=== PATIENT | male | born 1970 | race Caucasian/White ===

== ENCOUNTER 2025-03-08 10:19 | Outpatient (AMB) | payer OTHER, SELFPAY ==
--- NOTE | 2025-03-08 10:20 | MHC.OFFVIS ---
Vital Signs 03/08/25 10:31 Height 5 ft 9 in Weight 182 lb BMI 26.9 BP 128/86 Blood Pressure Location Rt brachial Position Sitting Pulse 98 Pulse Source Pulse Oximeter Pulse Oximetry (%) 100 Oxygen Delivery Method Room Air Intake Visit Reasons: bloating, intermittant abd discomfort Intake Note: New pt for initial eval of chronic abd pain, hx of diverticulitis. Last colo 2021. Original recall for 2031. PCP now requests sooner. CC; C/O intermittent episodes of GERD (nocturnal) persistence despite current therapy, RLQ pain + bloating, constipation, and occasional rectal bleeding w/ hx of hemorrhoids. 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 Patient had colonoscopy in 2019. No polyps found, recommendation was made for patient to return in 10 years. Patient reports that about October of this years she he had severe constipation rectal bleeding after straining. Patient reports that he stopped taking his anti anxiety medication and his symptoms resolved. Patient reports that he also started taking probiotics and fiber daily. Patient reports that he is moving his bowels daily. Trying to change his diet. Eats 2-3 meals a day. His last meal has to be before 4 pm or he does not follow sleep till after midnight. Patient reports occasional abdominal bloating. Head CT scan done in October that showed moderate diverticulosis to descending and sigmoid colon without diverticulitis. Patient denies melena, hematochezia, unintentional weight loss or ribbon like stools. No family history of CRC. Patient denies any epigastric pain or discomfort. He is currently taking pantoprazole and reports to have no issues. Patient denies any dyspepsia, dysphagia or odynophagia. Denies any abdominal pain or discomfort. No family history of inflammatory bowel disease. [facility] Medical History (Updated 03/08/25 @ 11:[address] [facility]) Esophageal polyp Acute diverticulitis Allergic rhinitis HLD (hyperlipidemia) Anxiety GERD (gastroesophageal reflux disease) Depression Surgical History History of throat surgery H/O colonoscopy Family History (Updated 03/08/25 @ 10:32 by FELISHA Botello) Father Coronary artery disease Unknown Colon cancer Social History Alcohol intake: current Comment: Socially Patient Tobacco Use Status: Tobacco use Unknown Review of Systems Const Denies weight gain and Denies weight loss ENT Reports no additional complaints, Denies dysphagia and Denies odynophagia Card Reports no additional complaints Resp Reports no additional complaints GI Reports abdominal pain (RLQ), Denies belching, Denies melena, Reports bloating, Denies change in bowel habits, Reports constipation, Denies dysphagia, Denies excessive flatus, Denies dyspepsia, Reports heartburn, Denies diarrhea, Denies loose stools, Denies nausea, Denies odynophagia and Denies vomiting Reports no additional complaints Musc Reports no additional complaints Neuro Reports no additional complaints Psych Reports no additional complaints Endo Reports no additional complaints Physical Exam Vital Signs: BMI result Body Mass Index 26.9 Const General: healthy appearing, no acute distress and well developed Nutritional Appearance: well nourished Orientation/consciousness: patient oriented x3 Resp Effort & Inspection: normal respiratory effort, able to speak in complete sentences, no tracheal deviation and symmetric chest movement Auscultation: clear to auscultation bilaterally Cardio Rate: regular rate GI Inspection: Yes normal to inspection and No distended Palpation (GI): Soft to palpation, not firm, nontender and No hepatosplenomegaly present Auscultation: normal bowel sounds General: Yes no CVA tenderness Back/Spine/Pelvis Back: no CVA tenderness Skin General skin exam: elasticity normal, turgor normal and dry skin Neuro General: patient oriented x3 Psych Appearance: grossly normal Mental Status: mental status grossly normal Assessment & Plan Assessment & Plan (1) GERD (gastroesophageal reflux disease): Code(s): K21.9 - Gastro-esophageal reflux disease without esophagitis Category: Medical Qualifiers: Esophagitis presence: esophagitis presence not specified Qualified Code(s): K21.9 - Gastro-esophageal reflux disease without esophagitis (2) Esophageal polyp: Code(s): K22.81 - Esophageal polyp Category: Medical (3) Acute diverticulitis: Comment: 12/06/2020 - Treated at [facility] Code(s): K57.92 - Diverticulitis of intestine, part unspecified, without perforation or abscess without bleeding Category: Medical (4) Postprandial abdominal bloating: Code(s): R14.0 - Abdominal distension (gaseous) Plan Patient will continue current therapy with fiber and pre and probiotics. Discussed with patient low FODMAP diet. List of food recommended as well as list of food to avoid given to patient. Patient denies having any GI concerning symptoms at this point except for occasional abdominal bloating which is most likely food related. However will check vitamin B12, folate, transglutaminase thyroid study, lipase and vitamin-D. Patient reports the pantoprazole have been working for him. Patient reports that he had esophageal polyp removed in October of this year. He he probably should have upper endoscopy done next year to re-evaluate esophagus. Patient will return to our office in 4 months. He was encouraged to call us if he will have any GI concerning symptoms. Patient is agreeable to this plan and verbalizes understanding of instructions. He was given the opportunity to ask questions and all questions answered. Thank you for allowing me to participate in his care Orders: Orders Vitamin B12 and Folate Today R19.7 - Diarrhea, unspecified Transglutaminase IgA Today R10.9 - Unspecified abdominal pain TSH reflex Free T4 Today K59.00 - Constipation, unspecified Lipase Today R10.9 - Unspecified abdominal pain Vitamin D 25-OH (D2 and D3) Today E55.9 - Vitamin D deficiency, unspecified Coding Level of Care Code New Pt Level 3 (31335) Diagnoses Gastroesophageal reflux disease, unspecified whether esophagitis present K21.9 Esophagitis presence: esophagitis presence not specified Esophageal polyp K22.81 Acute diverticulitis K57.92 Postprandial abdominal bloating R14.0 Time Spent (min) 40 Comment 30 minutes spent with patient and additional 10 minutes spent reviewing his records
[2025-03-08 10:31] VITALS: BP 128/86; PULSE 98; O2SAT 100; BMI 26.9
--- OUTSIDE RECORDS SUMMARY | 2025-03-08 12:49 | XMS_ITS | Clinical Summary ---
Author Organization [facility] Address [address] [place] [address] Phone Care Team Providers Care Blower Installer Name Role Phone Israel Head MD Primary Care Provider [phone] Allergies No known active allergies Medications No known medications Social History Tobacco Use Types Packs/Day Years Used Date Smoking Tobacco: Every Day Cigarettes Smokeless Tobacco: Never Tobacco Cessation:Ready to Q uit: Not Asked; Counseling Given: Not Answered Alcohol Use Standard Drinks/Week Comments Not Currently 0 (1 standard drink = 0.6 oz pur e alcohol) Sex and Gender Information Value Date Recorded Sex Assigned at Male 07/24/2024 4:50 AM EDT Legal Sex Male 11:23 PM EST Gender Identity Male 07/24/2024 4:50 AM EDT Sexual Orientation Straight 07/24/2024 4: 50 AM EDT Obstetrics History Last Filed Vital Signs Vital Sign Reading Time Taken Comments Blood Pressure 170/104 07/24/2024 6:34 AM EDT Pulse 91 07/24/2024 6:34 AM EDT Temperature 36.4 C (97.6 F) 07/24/2024 4:57 AM EDT Respiratory Rate 18 07/24/2024 6:34 AM EDT Oxygen Saturation 99% 07/24/2024 6:34 AM EDT Inhaled Oxygen Concentration - - Weight 81.6 kg (180 lb) 07/24/2024 4:57 AM EDT Height 175.3 cm (5' 9 ) 07/24/2024 4:57 AM EDT Body Mass Index 26.58 07/24/2024 4:57 AM EDT Plan of Treatment Health Maintenance Due Date Last Done Comments Colorectal Cancer Screening: Colonoscopy 1971 DTaP,Tdap,and Td Vaccines (1 - Tdap) 1990 Hepatitis B Vaccines (1 of 3 - 19+ 3-dose series) 1990 Pneumococcal Vaccine: 50+ Years (1 of 2 - PCV) 1990 Cholesterol Screening (Lipid Panel) 03/11/2022 HIV Screening 03/11/2022 Hepatitis C Screening 03/11/2022 Social Influencers of Health Screening 03/11/2022 Depression Screening 04/08/2024 COVID-19 Vaccine ( - season) 2024 Influenza Vaccine (#1) 2024 , 02/10/2020, 04/14/2019, Additional history exists RSV Immunization Adult Patients (1 - 1-dose 75+ series) 2046 Zoster Vaccines Completed 05/24/2024, 03/02/2024 HIB Vaccines Aged Out No longer eligi ble based on patient's age to complete this topic HPV Vaccines Aged Out No longer eligi ble based on patient's age to complete this topic Hepatitis A Vaccines Aged Out No long er eligible based on patient's age to complete this topic IPV Vaccines Aged Out No longer eligi ble based on patient's age to complete this topic MMR Vaccines Aged Out No longer eligi ble based on patient's age to complete this topic Meningococcal ACWY Vaccine Aged Out N o longer eligible based on patient's age to complete this topic Meningococcal B Vaccine Aged Out No l onger eligible based on patient's age to complete this topic RSV Immunization Patients Under 20 months Aged Out No longer eligible based on patient's age to complete this topic Varicella Vaccines Aged Out No longer eligible based on patient's age to complete this topic Insurance [facility] Care Teams Blower Installer Relationship Specialty Start Date End Date Israel Head MD PCP - General Unit Controller 04/28/17
--- OUTSIDE RECORDS SUMMARY | 2025-03-08 12:49 | XMS_ITS ---
Author Name [facility] Unknown History of Medication Use Medication Directions Dispensed Refills Start Date End Date Stat us benzonatate (TESSALON) 200 mg capsule Take 1 capsule (200 mg total) by mouth 3 (three) times daily as needed for cough for up to 5 days. 05/25/2024 active ibuprofen (ADVIL,MOTRIN) 600 mg tablet Take 1 tablet (600 mg total) by mouth every 8 (eight) hours as needed for pain for up to 5 days. 05/25/2024 active Simvastatin 02/25/2024 active lactobacillus rhamnosus, GG, (CULTURELLE) 10 billion cell capsule Take 1 capsule by mouth daily. active No known medications No known medications active pantoprazole (PROTONIX) 40 mg tablet Take 1 tablet (40 mg total) by mouth daily. 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 02/10/2024 Care Team Organization Name Specialty Phone Email Start Date End Da te [facility] KATHIA PEDRO Primary Care 07/24/2024 [facility] Care 07/24/2024 [facility] 05/26/2024 [facility] 1 04/26/2023 PodiatrMarcel Jones 02/11/2024 ЮлияiatrMarcel Jones 02/11/2024
--- OUTSIDE RECORDS SUMMARY | 2025-03-08 12:49 | XMS_ITS | Clinical Summary ---
Author Organization [address] Address [address] [place] [address] Care Team Providers Care Gang Miner Name Role Phone No, Pcp (Do Not Change Name) Primary Care Provid er Unavailable Medications pantoprazole (PROTONIX) 40 mg tablet Take 1 tablet (40 mg total) by mouth daily. Active lactobacillus rhamnosus, GG, (CULTURELLE) 10 billion cell capsule Take 1 capsule by mouth daily. Active Active Problems Problem Noted Date Diagnosed Date Influenza A 05/25/2024 Social History Tobacco Use Types Packs/Day Years Used Date Smoking Tobacco: Every Day Cigarettes Passive Smoke Exposure: Never Smokeless Tobacco: Never Tobacco Cessation:Ready to Q uit: Not Asked; Counseling Given: Not Answered Alcohol Use Standard Drinks/Week Comments Never 0 (1 standard drink = 0.6 oz pur e alcohol) Sex and Gender Information Value Date Recorded Sex Assigned at Not on file Legal Sex Male 5:04 PM EST Gender Identity Not on file Sexual Orientation Not on file Last Filed Vital Signs Vital Sign Reading Time Taken Comments Blood Pressure 147/93 05/25/2024 5:31 PM EST Pulse 113 05/25/2024 5:31 PM EST Temperature 36.7 C (98 F) 05/25/2024 5:31 PM EST Respiratory Rate 18 05/25/2024 5:31 PM EST Oxygen Saturation 100% 05/25/2024 5:31 PM EST Inhaled Oxygen Concentration - - Weight 83.9 kg (185 lb) 05/25/2024 5:31 PM EST s ubj Height 175.3 cm (5' 9 ) 05/25/2024 5:31 PM EST s ubj Body Mass Index 27.32 05/25/2024 5:31 PM EST Plan of Treatment Health Maintenance Due Date Last Done Comments HIV screening 02/09/1984 Hepatitis C screening 1989 Pneumococcal Vaccine (50+ ye ars) (1 of 2 - PCV) 1990 Tetanus adult (Td q 10,TDAP once) 1991 Lipid disorder screening 2011 Colon cancer screening, Colonoscopy 02/09/2016 Diabetes screening 02/09/2016 Lung Cancer Screening 2021 Shingles vaccine (Shingrix) (1 of 2 - Shingrix (RZV) 2 Dose Standard Series) 2021 Influenza vaccine 11/06/2024 Covid-19 vaccine series (1 - 2024- season) 2024 RSV Immunization (1 - 1-dose 75+ series) 2046 Meningococcal B Vaccine Aged Out No l onger eligible based on patient's age to complete this topic Meningococcal Vaccine Aged Out No aparna raji eligible based on patient's age to complete this topic Insurance [employer] Care Teams Gang Miner Relationship Specialty Start Date End Date No, Pcp (Do Not Change Name) PCP - General 05/26/24
--- OUTSIDE RECORDS SUMMARY | 2025-03-08 12:49 | XMS_ITS | Data Portability ---
Author Organization [place] [facility] Address [address] [address] Care Team Providers Care Parachute Folder Name Role Phone KATHIA DIAMOND Primary Care Provider [phone] Assessment Encounter Date Assessment Date Assessment LastModified by Organization Details LastModified Time 11/09/2024 11/09/2024 Pathology showed squamous papilloma as expected. The surgical site has healed well on flexible laryngoscopy today. He does have some uvular edema which is expected and can be contributing to the persistent globus and that should improve. Follow-up 3 to 4 months. Could consider sleep study for persistent symptoms as previously discussed. We did discuss possibility of papilloma regrowth. [email or web address] Not available 11/09/2024 16:05:50 Plan of Treatment Reminders Order Date Submit Date Provider Last Modified By Organization Details Last Modified Time Details Appointments FOLLOW UP 15 2024 01:00P M YNES GIRALDO MD Not available Not available Not available Lab None recorded . Referral None recorded . Procedures None recorded . Surgeries laryngos copy, direct, with biopsy (SURG) 2024 025 [email or web address] Not available 08/19/2024 09:22:18 Imaging None recorded . Medication Orders None recorded . Patient TargetsNo targets recorded. Patient InstructionsNo instructions recorded. Reason for Referral None Reported. Results Created Date Observation Date Name Description Value Unit Range Abnormal Flag Note LastModifiedBy Organization Detail LastModifiedTime 08/20/1907/25/2024 CT, neck, soft tissu e, w/ contr ast No observ ation record ed. [email or web address] Not Available 08/06 11:42:52 Result Notes None recorded. 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 - [facility] [place] 16:05:07 Problem Notes None recorded. Procedures Surgical History Date Name Laterality Status Provider Name and Address Organization Details Recorded Time 11/10/19 25 Fiberoptic Laryngoscopy (Comprehensive) completed YNES GIRALDO MD [address] [facility],[address], [address], [facility] - [facility] 11/09/2024 16:04:39 10/27/19 25 excision of lesion of pharynx completed YNES GIRALDO MD [address] [facility],[address], [address], [facility] - [facility] 10/26/2024 13:14:11 10/27/19 25 LARYNGOSCOPY, DIRECT, WITH BIOPSY (SURG) completed Lm Lopez [place] - [facility] 10/26/2024 13:56:57 08/20/19 25 Fiberoptic Laryngoscopy (Comprehensive) completed YNES GIRALDO MD [address] [place] [address],[address], [address], [facility] - [facility] 08/19/2024 09:57:00 Imaging Results None recorded. Procedure Notes None recorded. Medical Equipment None Reported. Allergies No known drug allergies Medications Name Sig Start Date Stop Date Status Note LastModified by Organization Details LastModified Time prednisone 10 mg tablet PLEASE SEE ATTACHED FOR DETAILED DIRECTION S 08/19 completed Not Available Not Available Not Available clindamycin HCl 300 mg capsule TAKE 1 CAPSULE BY MOUTH FOUR TIMES A DAY FOR 6 DAYS 11/09 completed Not Available Not Available Not Available Lidocaine Viscous 2 % mucosal solution 5-10 ML SWISH AND SPIT 3 TIMES A DAY NEEDED active Not Available Not Available No t Available benzonatate 200 mg capsule TAKE 1 CAPSULE (200 MG TOTAL) BY MOUTH 3 (THREE) TIMES DAILY NEEDED FOR COUGH FOR UP TO 5 DAYS. 08/19 completed Not Available Not Available Not Available clonazepam 1 mg tablet TAKE 1 TABLET BY MOUTH EVERY DAY AT BEDTIME NEEDED active Not Available Not Available No t Available doxycycline monohydrate 100 mg tablet TAKE 1 TABLET BY MOUTH TWICE A DAY FOR 7 DAYS 08/19 completed Not Available Not Available Not Available pantoprazol e 40 mg tablet,paradise yed release TAKE 1 TABLET BY MOUTH EVERY DAY active Not Available Not Available No t Available simvastatin 20 mg tablet TAKE 1 TABLET BY MOUTH EVERYDAY AT BEDTIME active Not Available Not Available No t Available clotrimazol e-betametha sone 1 %-0.05 % topical cream APPLY TWICE A DAY 11/09 completed Not Available Not Available Not Available gabapentin 300 mg capsule TAKE 1 CAPSULE ORALLY ONCE A DAY AT BEDTIME 08/19 completed Not Available Not Available Not Available hydroxyzine HCl 25 mg tablet TAKE 1 TABLET BY MOUTH 3 TIMES A DAY NEEDED active Not Available Not Available No t Available codeine 10 mg-guaifene sin 100 mg/5 mL oral liquid TAKE 10ML ORALLY AT BEDTIME FOR COUGH NEEDED 08/19 completed Not Available Not Available Not Available ibuprofen 600 mg tablet TAKE 1 TABLET (600 MG TOTAL) BY MOUTH EVERY 8 (EIGHT) HOURS NEEDED FOR PAIN FOR UP TO 5 DAYS. active Not Available Not Available No t Available albuterol sulfate HFA 90 mcg/actuati on aerosol inhaler TAKE 2 PUFFS EVERY 6 HOURS BY MOUTH active Not Available Not Available No t Available amoxicillin 875 mg-potassiu m clavulanate 125 mg tablet TAKE 1 TABLET BY MOUTH EVERY 12 HOURS 08/19 completed Not Available Not Available Not Available cyclobenzap rine 5 mg tablet TAKE ONE TABLET BY MOUTH TWICE DAILY NEEDED, DO NOT DRIVE 11/09 completed Not Available Not Available Not Available Vitals Date Recorded Body height Body mass index (BMI) Body weight Provider Name and Address Organization Details Last Updated DateTime 08/19/2024 175.26 cm 26.6 kg/m2 94622.63 g LUC NAYLOR [facility] 08/19/2024 08:51:28 Date Recorded Body height Body mass index (BMI) Body weight Provider Name and Address Organization Details Last Updated DateTime 11/09/2024 172.72 cm 27.1 kg/m2 62343.44 g Michelle Betancourt [facility] 11/09/2024 15:20:01 Social History None recorded. Functional Status Question Answer Note LastModified by Organization D etails LastModified Time What is your level of alcohol consumption? None [email or web address] Information not available 08/19/2024 Mental Status None recorded. Family History Nothing Reported. Medical History No medical history recorded. 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 I cannot say for sure this is contributi ng to his globus sensation but we ultimately decided to proceed with excision. This is an outpatient surgical procedure, about 45 minutes. We discussed some expected discomfort following the procedure. He has generalize d lymphoid hypertroph y including the palatine and lingual tonsils and robust neck soft tissue, features placing him at risk for sleep apnea, which can also be a risk factor for his globus sensation. He declines sleep study at this time but we can reassess after his laryngosco py.. [id number] YNES GIRALDO MD [facility] [address] [address] 11/09/2024 14:50:09 11/09/2024 15:36:57 Sensation of foreign body in throat [id number] 28199 R09.A2 [id number] Benign yasir plasm of oropharynx 42446151 D10.5 52507 Health Concerns Section Related Observation LastModified by Organization Detai ls LastModified Time None Recorded Concern Status LastModified by Organization Details LastModified Time None Recorded Advance Directives Directive None Recorded Payers Insurance Date Sequence Insurance Name Policy Number Policy Hsieh Covered Member ID Hsieh Member ID Guarantor Name 12/09/2024 1 [facility] [id number] 01 Christiano Newsome [id number] Christianoelena Hardykg Notes Date Note Type Note Provider Name and Address Organization Details Recorded Time 08/19/2024 text/html Patient was seen in the hospital about a month ago for globus. He reports that the sensation comes and goes. He had a CT scan showing oropharyngeal soft tissue swelling. Flexible laryngoscopy in the hospital showed small pedunculated lesion of the left posterior pharynx, widely patent glottic opening. YNES GIRALDO MD [address] [place] [address],[address], [address], [place] - [facility] 08/19/2024 09:59:15 11/09/2024 text/html 54-year-old male presents today for follow-up hydroxyzine for anxiety, using at nighthelps with globus had some cramping after procedurehad some muscle relaxer does grind YNES GIRALDO MD [address] [place] [address],[address], [address], [place] - [facility] 11/09/2024 16:06:04
== END 2025-03-08 11:20 | disposition home or self-care (01) ==
LOC: HO.HGI 10:19
PROVIDERS: PCP Family Medicine; Visit Provider Nurse Practitioner Family
DX: K21.9 Gastro-esophageal reflux disease without esophagitis (principal); K22.81 Esophageal polyp; K57.92 Diverticulitis of intestine, part unspecified, without perforation or abscess without bleeding; R14.0 Abdominal distension (gaseous)
CPT/HCPCS: 99203

== ENCOUNTER 2025-03-08 10:19 | Outpatient (REF) | payer OTHER, SELFPAY ==
[2025-03-08 12:57] LABS: Lipase 64 U/L (8-78)
[2025-03-08 13:20] LABS: Folate 14.5 ng/mL (> or = 4.0); Vitamin B12 965 pg/mL (200-900)
[2025-03-15 06:28] LABS: Vitamin D 25-OH, D2 <4 ng/mL; Vitamin D 25-OH, D3 40 ng/mL; Vitamin D 25-OH, Total 40 ng/mL (30-100)
== END 2025-03-08 10:20 | disposition home or self-care (01) ==
LOC: HO.LAB 10:19
PROVIDERS: PCP Family Medicine; Visit Provider Nurse Practitioner Family
DX: K21.9 Gastro-esophageal reflux disease without esophagitis (principal); K57.92 Diverticulitis of intestine, part unspecified, without perforation or abscess without bleeding; E55.9 Vitamin D deficiency, unspecified; K59.00 Constipation, unspecified; K22.81 Esophageal polyp; R19.7 Diarrhea, unspecified; R14.0 Abdominal distension (gaseous); R10.31 Right lower quadrant pain
CPT/HCPCS: 36415; 82306; 82607; 82746; 83690; 84443; 86364